=== PATIENT | male | born 1950 | race Caucasian/White ===

== ENCOUNTER 2023-05-19 21:00 | Emergency (ER) | payer MEDICARE, BC | END 2023-05-19 22:45 | disposition home or self-care (01) | LOC: KA.ED 21:00 → SUPCPDRO 21:00 → KA.ED 22:45 | DX: S52.124A Nondisplaced fracture of head of right radius, initial encounter for closed fracture (principal); W00.0XXA Fall on same level due to ice and snow, initial encounter | CPT/HCPCS: 73080-RT; 73090-RT; 99283 ==

== ENCOUNTER 2024-12-03 08:22 | Day surgery (SDC) | payer MEDICARE, BC ==
[2024-12-03] MEDS ORDERED: Sodium Chloride 0.9% 10 ML Syringe FLUSH PRN (09:00)
[2024-12-03] MEDS: Lactated Ringers 1,000 ML IV SCH (09:00)
[2024-12-03] MEDS ORDERED: Propofol 200 MG/20 ML SDV ONE (10:06)
[2024-12-03] MEDS ORDERED: Midazolam 1 MG/ML 2 ML SDV ONE (10:06)
== END 2024-12-03 12:05 | disposition home or self-care (01) ==
LOC: KA.SDS 08:22
PROVIDERS: ATTEND Family Medicine
DX: Z12.11 Encounter for screening for malignant neoplasm of colon (principal); D12.4 Benign neoplasm of descending colon; D12.5 Benign neoplasm of sigmoid colon; K57.30 Diverticulosis of large intestine without perforation or abscess without bleeding; R19.5 Other fecal abnormalities; K64.8 Other hemorrhoids; L30.9 Dermatitis, unspecified; I10 Essential (primary) hypertension; E78.00 Pure hypercholesterolemia, unspecified; E66.3 Overweight; Z79.899 Other long term (current) drug therapy
CPT/HCPCS: 00811; 88305; 99100; J2250; J2704; J7120